=== PATIENT | female | born 1990 | race Caucasian/White ===

== ENCOUNTER 2018-08-28 02:50 | Emergency (ER) | payer BC ==
[~2018-08-28] VITALS: Ht 160 cm; Wt 59.0 kg
--- NOTE | 2018-08-28 03:13 | Emergency Room Report ---
History of Present Illness General Chief Complaint: Abdominal Pain Source: Patient Present Illness HPI Is a 28-year-old female with no significant past medical history. She is taking right hand pain for positive PPD test. She presents with chief complaint of myalgia with abdominal pain and nausea and vomiting and diarrhea. Onset tonight. Pain is 10 out of 10. Hurts to move. Some sore throat. Subjective fever. No chills. No radiation. Pain is crampy in nature. Took Advil tonight without much relief. Allergies: Coded Allergies: No Known Allergies (Unverified , 08/28/18) Patient History Past Medical History: see triage record, old chart reviewed, psych hx - severe anxiety Past Surgical History: none Pertinent Family History: none Social History: Denies: smoking Last Menstrual Period: 08/26/18 Now: No Immunizations: other Reviewed Nursing Documentation: PMH: Agreed; PSxH: Agreed Nursing Documentation-PM Past Medical History: No History, Except For Hx Cardiac Problems: No - acne Hx Neurological Problems: Yes - anxiety, depression Review of Systems Constitutional: Reports: fever, malaise Eye: Denies: eye pain, blurred vision ENT: Reports: throat pain; Denies: ear pain, nose congestion, throat swelling Respiratory: Denies: cough, shortness of breath Cardiovascular: Denies: chest pain, palpitations Gastrointestinal: Reports: abdominal pain, diarrhea, nausea, vomiting Musculoskeletal: Denies: back pain, joint pain Skin: Denies: rash Neurological: Denies: headache, numbness Endocrine: Denies: increased thirst, increased urine Hematologic/Lymphatic: Denies: easy bruising All Other Systems: negative except mentioned in HPI Physical Exam Vital Signs Date Time Temp Pulse Resp B/P (MAP) Pulse Ox O2 Delivery O2 Flow Rate FiO2 08/28/18 02:55 99.1 118 16 92/58 98 Room Air 99.1 vitals with fever and tachycardia Sp02 EP Interpretation: reviewed, normal General Appearance: well appearing, no apparent distress, alert Head: normocephalic, atraumatic Eyes: bilateral eye PERRL, bilateral eye EOMI ENT: hearing grossly normal, normal pharynx Neck: full range of motion, supple, no meningismus Respiratory: chest non-tender, lungs clear, normal breath sounds Cardiovascular #1: regular rate, rhythm, no murmur Gastrointestinal: normal bowel sounds, no mass, no organomegaly, no bruit, non- distended, tenderness - epigastric Musculoskeletal: back normal, gait/station normal, normal range of motion Psychiatric: anxious Skin: warm/dry Medical Decision Making Diagnostic Impression: Primary Impression: Abdominal pain Qualified Codes: R10.84 - Generalized abdominal pain Additional Impression: Nausea vomiting and diarrhea ER Course Patient with abdominal pain with nausea vomiting and diarrhea. This is most likely a gastroenteritis, viral in nature. No evidence of acute abdomen. No evidence of obstruction. Because of her severe pain, I did a CT scan. CT scan is unremarkable. No evidence of an acute abdomen. her symptom probably worsen probably bc of her anxiety. We'll discharge home. She is pain-free now. Lab Results Impression labs unremarkable CT/MRI/US Diagnostic Results CT/MRI/US Diagnostic Results : Imaging Test Ordered: CT abdomen and pelvis Impression Read by radiologist. Right ovarian cyst. No acute abdomen. No obstruction. Last Vital Signs Date Time Temp Pulse Resp B/P (MAP) Pulse Ox O2 Delivery O2 Flow Rate FiO2 08/28/18 02:55 99.1 118 16 92/58 98 Room Air 99.1 Status: improved Disposition: HOME, SELF-CARE Condition: Stable Scripts Ondansetron (Zofran) 4 Mg Tablet 4 MG ORAL Q6H PRN for Nausea & Vomiting, #10 TAB 0 Refills Prov: Lang Banks MD 08/28/18 Ibuprofen* (MOTRIN*) 600 Mg Tablet 600 MG ORAL THREE TIMES A DAY, #30 TAB 0 Refills Prov: Lang Banks MD 08/28/18 Patient Instructions: Abdominal Pain, Adult Additional Instructions: Follow-up with your DrEvan in 2-3 days of not better. Return if worse. Lang Banks MD Aug 28, 2018 03:13
[2018-08-28] MEDS ORDERED: Morphine Sulfate 4mg/ml Inj (IV USE ONLY) IVP ONE ×2 (03:15→04:00)
[2018-08-28] MEDS ORDERED: Acetaminophen 500mg (ES) tab ORAL ONE (03:15)
[2018-08-28 03:20] VITALS: BP 100/59
[2018-08-28 03:28] LABS: APPEARANCE,URINE CLEAR; BILIRUBIN, URINE NEGATIVE (NEGATIVE); GLUCOSE, URINE (UA) NEGATIVE (NEGATIVE); KETONES,URINE NEGATIVE (NEGATIVE); LEUKOCYTE ESTERASE ,URINE 1+ (NEGATIVE); NITRITE,URINE NEGATIVE (NEGATIVE); PH,URINE 7 (4.5-8.0); PROTEIN,URINE NEGATIVE (NEGATIVE); UROBILINOGEN,URINE NORMAL MG/DL (0.0-1.0)
[2018-08-28 03:31] LABS: HEMATOCRIT 37.6 % (37.0-47.0); HEMOGLOBIN 13.3 G/DL (12.0-16.0); MEAN CORPUSCULAR VOLUME 87 FL (80-99); PLATELET COUNT 147 K/UL (150-450); RED BLOOD COUNT 4.34 M/UL (4.20-5.40); RED CELL DISTRIBUTION WIDTH 10.6 % (11.6-14.8); WHITE BLOOD COUNT 9.8 K/UL (4.8-10.8)
[2018-08-28 03:33] LABS: COLOR,URINE YELLOW
[2018-08-28 03:39] LABS: ANION GAP 8 mmol/L (5-15); BLOOD UREA NITROGEN 12 mg/dL (7-18); CALCIUM 8.6 MG/DL (8.5-10.1); CARBON DIOXIDE 25 MMOL/L (21-32); CHLORIDE 104 MMOL/L (98-107); CREATININE 0.8 MG/DL (0.55-1.30); POTASSIUM 3.7 MMOL/L (3.5-5.1); SODIUM 137 MMOL/L (136-145)
[2018-08-28 03:44] LABS: ALANINE AMINOTRANSFERASE 39 U/L (12-78); ALBUMIN 3.5 G/DL (3.4-5.0); ALBUMIN/GLOBULIN RATIO 1.2 (1.0-2.7); ALKALINE PHOSPHATASE 67 U/L (46-116); ASPARTATE AMINO TRANSFERASE 21 U/L (15-37); BILIRUBIN,TOTAL 0.7 MG/DL (0.2-1.0)
[2018-08-28] MEDS ORDERED: LORazepam Inj 2mg/ml 1ml ONE (03:53)
[2018-08-28] MEDS ORDERED: Morphine Sulfate 4mg/ml Inj (IV USE ONLY) ONE (03:54)
[2018-08-28] MEDS ORDERED: Isovue-300 100ml vial INJ PRN (04:00)
[2018-08-28] MEDS ORDERED: LORazepam Inj 2mg/ml 1ml IV ONE (04:00)
[2018-08-28 05:30] VITALS: BP 118/67
[2018-08-28] MEDS ORDERED: ZOFRAN4 MG ORAL (05:59)
[2018-08-28] MEDS ORDERED: IBUPROFEN600 MG ORAL (05:59)
[2018-08-28 06:00] VITALS: BP 118/67
--- NOTE | 2018-08-28 09:54 | Diagnostic Imaging Report ---
Indication: Abdominal pain Technique: Continuous helical transaxial imaging of the abdomen and pelvis was obtained from the lung bases to the pubic symphysis during intravenous contrast administration. Coronal 2-D reformats were also obtained. Study obtained in a Siemens sensation [address] Automatic Exposure Control was utilized. Total Dose length Product (DLP): [address] Dose Index Volume (CTDIvol): 0.15, 10.55 mGy Comparison: None Findings: Lung bases are clear. The liver is a diffusely low in attenuation consistent with fatty infiltration and is about 20 cm intracranial caudal dimension which is enlarged. Kidneys are unremarkable. Gallbladder is distended but unremarkable otherwise. The pancreas shows no obvious abnormality. The spleen is borderline enlarged measuring about 13 cm. There is no ascites demonstrated. No evidence of bowel obstruction, free fluid or free air. There is a right ovarian cyst measuring about 4.2 x 3 cm. Uterus noted. Appendix is partially seen and appears unremarkable as such. There is a sclerotic focus in the posterior part of the left ilium near the sacroiliac joint nonspecific. This may be a bone island. IMPRESSION: Hepatomegaly with fatty infiltration. Borderline splenomegaly. 4.2 x 3.0 cm right ovarian cyst. This may be better evaluated with ultrasound. Nonspecific sclerotic focus in the left ilium likely bone island. The CT scanner at [facility] is accredited by the [employer] and the scans are performed using dose optimization techniques as appropriate to a performed exam including Automatic Exposure control.
== END 2018-08-28 06:00 | disposition home or self-care (01) ==
LOC: EDBD 02:50 → EMR 03:13 → UNDOADMIN 04:22 → 4E 04:22 → EDBEDREQ 05:09 → EMR 06:00
DX: N83.201 Unspecified ovarian cyst, right side (principal); R10.84 Generalized abdominal pain; R11.2 Nausea with vomiting, unspecified; R76.11 Nonspecific reaction to tuberculin skin test without active tuberculosis
CPT/HCPCS: 36415; 74177; 80053; 81003; 81025; 83690; 85025; 86710; 96361; 96374; 96375; 96376; 99284; J2270; J2405; Q9967